=== PATIENT | male | born 1990 | race Caucasian/White ===

== ENCOUNTER 2019-06-11 18:54 | Emergency (ER) | payer OTHER ==
[~2019-06-11] VITALS: Ht 182.9 cm; Wt 90.7 kg
[2019-06-11] MEDS ORDERED: IBUPROFEN 600 MG TABLET ONE (20:35)
[2019-06-11] MEDS ORDERED: IBUPROFEN 600 MG TABLET PO ONE (20:45)
--- NOTE | 2019-06-11 21:20 | NUR ---
Patient in room watching TV with no distress noted.
--- NOTE | 2019-06-11 21:51 | NUR ---
Patient discharged to home in stable conditon. Written and verbal after care instructions given. Patient verbalizes understanding of instructions. Walked out of ER with no distress noted.
[2019-06-11 21:52] VITALS: BP 128/77
== END 2019-06-11 21:53 | disposition home or self-care (01) ==
LOC: ER 18:54
DX: S60.222A Contusion of left hand, initial encounter (principal); V49.9XXA Car occupant (driver) (passenger) injured in unspecified traffic accident, initial encounter; Y93.89 Activity, other specified; Y92.89 Other specified places as the place of occurrence of the external cause; Y99.8 Other external cause status
CPT/HCPCS: 73130; A4663